=== PATIENT | female | born 1995 | race Caucasian/White ===

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

== ENCOUNTER 2017-10-12 20:02 | Emergency (ER) | payer OTHER ==
[~2017-10-12] VITALS: Ht 162.6 cm; Wt 74.0 kg
[~2017-10-12 20:02] MED LIST changes: +IBUPROFEN800 MG PO; +Tylenol Extra Streng PO
[2017-10-13] MEDS ORDERED: PERCOCET 5/31 TABLET PO (02:13)
[2017-10-13] MEDS ORDERED: AUGMENTIN875 MG PO (02:13)
[2017-10-13 02:32] VITALS: BP 107/65
== END 2017-10-13 02:52 | disposition home or self-care (01) ==
LOC: TRA 20:02 → EME 20:02 → EDBD 20:02 → EME 20:02 → TRA 20:02
DX: S02.2XXB Fracture of nasal bones, initial encounter for open fracture (principal); S02.40CA Maxillary fracture, right side, initial encounter for closed fracture; Y04.8XXA Assault by other bodily force, initial encounter; Y07.03 Male partner, perpetrator of maltreatment and neglect; Y92.89 Other specified places as the place of occurrence of the external cause
CPT/HCPCS: 70450; 70486; 99281; 99285; J0696; J3010; J7030